=== PATIENT | male | born 1930 | race Caucasian/White ===

== ENCOUNTER 2016-12-30 10:24 | Inpatient (IN) | payer MEDICARE, BC ==
[~2016-12-30] VITALS: Ht 175.3 cm; Wt 83.2 kg
--- NOTE | ~2016-12-30 | ECH ---
Transthoracic Echocardiography Report (TTE) Demographics Patient Name ISMAEL PUGH Date of Study 12/30/2016 Patient Number [id number] Visit Number [id number] Date of 1930 Room Number 419 Accession Number [id number] Gender Male Age 86 year(s) Referring Brenda Bar Ivory Carver Zainab Mccormick [facility] Physician MD Frieda Mackay APRN Physician Kamilla Richards MD Histologist Physician Quintin Supervising Ordering Physician Louise Campo MD, MD/MLP Nurse Stress Cannery Tender Engineer Conclusions Contractility Score Summary Normal Left Ventricular contractility was noted. Summary Technically adequate exam. The estimated left ventricular ejection fraction is 60%. Mild left ventricular hypertrophy. Diastolic assessment reveals Grade I diastolic dysfunction. The left atrium is mildly dilated by LA volume index measurement. There is mild aortic regurgitation by color Doppler. Trivial pulmonic valve regurgitation by color Doppler. No other significant valvular abnormalities. The ascending aorta appears moderately dilated. The maximum diameter measures 4.2 cm. Recommendation The patient will be given the results of this study by the physician who ordered the exam. Procedure Type of Study TTE procedure Procedure Date Date: 12/30/2016 Start: 04:54 PM Technical Quality: Adequate visualization Indications:Bradycardia, Left bundle branch block, Hypertension and Bilateral lower extremity edema. Appropriate Use Criteria: 9 Height: 69 inches Weight: 187.17 pounds BSA: 2.01 m Rhythm: Sinus bradycardia HR: 35 bpm BP: 127/53 mmHg M-Mode/2D Measurements LV Diastolic Dimension: 4.3 cm LV Systolic Dimension: 3.44 cm LV Septum Diastolic: 1.29 cm LV PW Diastolic: 1.08 cm AO Root Dimension: 3.22 cm Cardiac Output: 3.36 l/min LA Dimension: 4.09 cm Cardiac Index: 1.67 l/min*m RV Diastolic Dimension: 3.75 cm LA volume index: 38 ml/m LVOT: 2.29 cm LVOT VTI: 23.33 cm RV Base: 4.3 cm LV Stroke volume: 96.04 ml RV Mid: 3.1 cm LV Stroke volume index: 47.78 ml/m RV Length: 6.6 cm TAPSE: 3.2 cm TDI-S': 17 cm/s Doppler Measurements AV Peak Velocity: 1.46 m/s MV Peak E-Wave: 0.54 m/s AV Peak Gradient: 8.53 mmHg MV Peak A-Wave: 0.94 m/s AV Mean Gradient: 4.65 mmHg MV E/A Ratio: 0.58 LVOT Peak Velocity: 1.03 m/s MV P1/2t: 57.1 msec AV Area (Continuity):3.23 cm MV Deceleration Time: 197 msec TR Velocity:2.66 m/s MV Area (PHT): 3.85 cm TR Gradient:28.3 mmHg PV Peak Velocity: 1.14 m/s Estimated RAP:5 mmHg PV Peak Gradient: 5.2 mmHg Estimated RVSP: 33 mmHg Estimated PASP: 33.3 mmHg RA Area: 12.3 cm Findings Left Ventricle The left ventricle is normal in size . Mild left ventricular hypertrophy. Diastolic assessment reveals Grade I diastolic dysfunction. Right Ventricle Normal right ventricle structure and function. Left Atrium The left atrium is mildly dilated by LA volume index measurement. Right Atrium Normal right atrial size. Mitral Valve Normal mitral valve structure and function. Mild mitral regurgitation by color Doppler. Aortic Valve The aortic valve is mildly sclerotic. There is mild aortic regurgitation by color Doppler. Tricuspid Valve Normal appearing tricuspid valve. Mild tricuspid regurgitation by color Doppler. Estimated pulmonary pressures within normal range. Pulmonic Valve Normal pulmonic valve structure and function. Trivial pulmonic valve regurgitation by color Doppler. Pericardial Effusion Epicardial fat pad noted. Miscellaneous The ascending aorta appears moderately dilated. The maximum diameter measures 4.2 cm. Pleural Effusion No evidence of pleural effusion. Contractility Score LV regional wall motion:(0-Non visualized 1-Normal 2-Hypokinesis 3-Akinesis 4-Dyskinesis 5-Aneurysm) Signature
--- NOTE | ~2016-12-30 | ECH ---
Transthoracic Echocardiography Report (TTE) Demographics Patient Name ISMAEL PUGH Date of Study 01/02/2017 Patient Number [id number] Visit Number [id number] Date of 1930 Room Number 303 Accession Number [id number] Gender Male Age 86 year(s) Referring Maurice ABREU Improvement Spec Zainab Mccormick [facility] Physician Quintin Mackay APRN Physician Interpreting Andressa Sam Music Journalist Physician MD Supervising Ordering Physician Maurice Ribeiro MD/[facility] Nurse Stress Auricular Acupuncturist Conclusions Summary Limited study for bubble study to rule out shunt. Technically adequate exam. The estimated left ventricular ejection fraction is 65%. Bubble study was done, there is no evidence for a PFO or ASD. Procedure Type of Study TTE procedure:Echo Limited SF. Procedure Date Date: 01/02/2017 Start: 10:27 AM Technical Quality: Adequate visualization Indications:Hypertension. Additional Indications:hypoxia , pacemaker Appropriate Use Criteria: 8 Contrast Medium: Bubble Study. Height: 69 inches Weight: 187.17 pounds BSA: 2.01 m Rhythm: Sinus tachycardia HR: 100 bpm BP: 136/76 mmHg Allergies - No known allergies. Findings Right Ventricle Device lead noted in the right ventricle. Left Atrium Bubble study was done, there is no evidence for a PFO or ASD. Right Atrium Device lead seen in the right atrium. Signature
--- NOTE | ~2016-12-30 | EEP ---
Initial Pacemaker Generator Implant Report Demographics Patient Name KEATON GUEVARA Gender Male Patient Number [id number] Race Visit Number [id number] Ethnicity Corporate ID Room Number 433 Accession Number [id number] Height 175.26 cm Date of 1930 Weight 84.9 kg Age 86 year(s) BSA 2.01 m Referring Physician Brenda Bar MD BMI 27.64 kg/m Implanting Physician Louise Campo MD Date of Study 12/31/2016 Assisting Physician Performing Physician Louise Campo MD The procedure was explained in detail to the patient. Risks, complications and alternative treatments were reviewed. Written consent was obtained. Medications reviewed with patient prior to procedure. Conclusions Implantable Device Summary Summary 1. Successful dual chamber pacemaker implant Recommendations 1. Chest X-Ray post-op and in the AM 2. Device check in the AM 3. Follow up with [facility] provider in 5-7 days Complications No complications. Procedure Procedure Type Pacemaker:Initial Insertion (generator and leads), Dual Lead PM Insert A&V Leads Indications Bradycardia, Bifascicular Block and Sick sinus syndrome. Procedure Description The patient was brought to the electrophysiology laboratory in a fasting state. A baseline ECG was recorded. Surface ECG leads, intracardiac electrograms, blood pressure measurements, and pulse oximety signals were monitored. A grounding pad was placed on the back. A defibrillator was configured to deliver shocks via self-adhesive anterior posterior defibrillator pads. Conscious sedation was administered. The upper chest area was prepped with ChloraPrep. After a three minute dry time the patient was draped in a sterile fashion. 2% Lidocaine with Bupivicaine was used in the infraclavicular area and an incision was made. Blunt dissection down to the area of the Pectoralis Fascia was performed. Subclavian access was obtained and guidewires were placed into the SVC. 2% Lidocaine with Bupivicaine was used inferiorly to the incision. Blunt dissection anterior to the Pectoralis Fascia was used to form the pacemaker pocket. Over one wire, an intravenous sheath and dilator were placed in the superior vena cava under fluoroscopic vision. Through the sheath, the ventricular lead was then placed into the right ventricular apex under fluoroscopic vision and tested. The sheath was removed. The lead was sutured to the Pectoralis fascia using non-absorbable suture. Over the other wire, an intravenous sheath and dilator were placed in to the superior vena cava under fluoroscopic vision. Through the sheath, the atrial lead was then placed in the right atrium under fluoroscopic vision and tested. The sheath was removed. The lead was sutured to the Pectoralis Fascia using non-absorbable sutures. The leads were then connected to the pulse generator and screwed tight. The pocket was irrigated with Normal Saline. The lead(s) and pulse generator were then placed into the pacemaker pocket. The incision was then closed. It was closed using 2-0 Vicryl for the deep and intermediate layer and 4-0 Vicryl for the subcuticular layer. A sterile dressing was applied. The patient tolerated the procedure well and was returned to the nursing unit in stable condition. Devices and Leads Devices + + +--------+ +------+ +---------+ !Identification!Action !Location!Device name!Serial!Implant !Comments ! ! ! ! ! !# !date ! ! + + +--------+ +------+ +---------+ !New implant !Implanted !Left !ALEPA ![id number]!12/31/2016! ! ! ! ! !SAAD ROBLES L111! ! ! ! + + +--------+ +------+ +---------+ Leads + + +--------+ +------+ +---------+ !Identification!Action !Location!Lead name !Serial!Implant !Comments ! ! ! ! ! !# !date ! ! + + +--------+ +------+ +---------+ !New implant !Implanted !RV !PACER LEAD ![id number]!12/31/2016! ! ! ! !septum !INGEVITY ! ! ! ! ! ! ! !MRI 59 CM ! ! ! ! + + +--------+ +------+ +---------+ !New implant !Implanted !RA !PACER LEAD ![id number]!12/31/2016! ! ! ! !lateral !INGEVITY ! ! ! ! ! ! ! !MRI 52 CM ! ! ! ! + + +--------+ +------+ +---------+ Leads Measured and Programmed Data +--------+---------+ +---------+ +---------+ + +----- --+ !Lead !Sensing Amplitude !Threshold (V) !Pulse Width (ms) !Impendence!Current! ! !(mV) ! ! !(Ohms) !(mA) ! +--------+---------+ +---------+ +---------+ + +----- --+ ! !Measured !Programmed !Measured !Programmed !Measured !Programmed ! ! ! +--------+---------+ +---------+ +---------+ + +----- --+ !RV ! !2.5 !0.5 !3.5 !0.5 !0.5 !1150 !0.5 ! !septum ! ! ! ! ! ! ! ! ! +--------+---------+ +---------+ +---------+ + +----- --+ !RA !1.5 !0.5 !0.7 !3.5 !0.5 !0.5 !592 !1.2 ! !lateral ! ! ! ! ! ! ! ! ! +--------+---------+ +---------+ +---------+ + +----- --+ Device Programming Bradycardia Zone +-------+--------+--------+--------+ + +------+--------+ !Pacing !Mode !Lower !Upper !Paced AV !Sensed AV !PVARP !VRP (ms)! !Mode !Switch !Rate !Rate !Interval !Interval !(ms) ! ! ! ! !(ppm) !(ppm) !(ms) !(ms) ! ! ! +-------+--------+--------+--------+ + +------+--------+ !DDDR !On !60 !130 !210 !180 !320 !250 ! +-------+--------+--------+--------+ + +------+--------+ Medical History Allergies - No known allergies:. Admission Data Admission Date: 12/30/2016 Admission Time: 12:40 Insurance Payors:Medicare. Hospital Status:Inpatient. Procedure Data Procedure Date:12/31/2016Start:13:30 Fluoroscopy Time: 4:18 minutes.Fluoroscopy Dose: 185 mGy. Estimated blood loss:10 ml. Contrast Material - Isovue 370,10 ml. Procedure Medications Order and Administration + + +---------+--------+ !Time !Medication !Dosage !Route ! + + +---------+--------+ !12/31/2016 13:17 !Ancef !2 g !I.V. ! + + +---------+--------+ !12/31/2016 13:23 !Versed !2 mg !I.V. ! + + +---------+--------+ !12/31/2016 13:23 !Fentanyl !50 mcg !I.V. ! + + +---------+--------+ !12/31/2016 13:23 !Sodium Chloride !10 ml !I.V. ! + + +---------+--------+ !12/31/2016 13:27 !Oxygen !4 l/min !NC ! + + +---------+--------+ !12/31/2016 13:32 !Versed !1 mg !I.V. ! + + +---------+--------+ !12/31/2016 13:32 !Fentanyl !25 mcg !I.V. ! + + +---------+--------+ !12/31/2016 13:35 !Versed !1 mg !I.V. ! + + +---------+--------+ !12/31/2016 13:35 !Fentanyl !25 mcg !I.V. ! + + +---------+--------+ Approach - Incision site: Left infraclavicular.The subclavian vein (stick) was cannulated.The incision was closed using 3-0 Vicryl for the deep and intermediate layers and 4-0 Vicryl for the subcuticular layer. A sterile dressing was applied. Entry Locations - Percutaneous access was performed through the left subclavian vein. A 6 Fr sheath was inserted. - Percutaneous access was performed through the left subclavian vein. A 6 Fr sheath was inserted. Discharge Data Discharge Date: 01/05/2017 Signatures
--- NOTE | 2016-12-31 08:17 | HP ---
ADMIT: 12/30/2016 RM/LOC: 419 [facility] MR#: [id number] ACC#: [id number] [address] [facility] [address] [place], [place] [address] ISMAEL PUGH [address] [place] [address] History and Physical SEX: M AGE: 86 : 1930 DATE OF SERVICE: CHIEF COMPLAINT: Shortness of breath, weakness, and low pulse rate. HISTORY OF PRESENT ILLNESS: This is an 86-year-old gentleman, usually gets his care through the [facility]. Lives [facility] at [facility]. Has a history of stroke in the past which he described as a mini-stroke which his symptoms resolved as well as hypertension. He reports he was talking to his sister who is a nurse and was telling her how he was feeling. He reported to her that his heart rate was 35, so recommended that he go in to be evaluated. So, he went over to be evaluated and they sent him directly to the hospital because of the low heart rate. He denies any chest pain but has been short of breath, has been feeling pretty weak, and overall not well. He thinks some of this started late November when he saw Frieda Ryder NP, at the [facility]. He was put on Lasix at that time because he had edema in his lower extremities. He says he has not felt very well since that time. He has been lightheaded and woozy as he describes it. PAST MEDICAL HISTORY: Osteoarthritis, hypertension, spinal stenosis, BPH, history of kidney stones, hyperlipidemia, hammertoes, stroke in 2002, history of bilateral total hip arthroplasty. He had a colonoscopy in 2008. SOCIAL HISTORY: Current nonsmoker. He has some family at his bedside. His lives in a senior living. FAMILY HISTORY: Reviewed but noncontributory. REVIEW OF SYSTEMS: Other complete review of systems obtained and negative except as above. PHYSICAL EXAMINATION: VITAL SIGNS: Temperature 98.1, pulse 43, respirations 16, blood pressure 127/53, ox saturation 96% on room air. GENERAL: This is a well-appearing 86-year-old gentleman. He is in no apparent distress. He is lying flat in bed without respiratory difficulty. HEENT: Pupils equal, round, and reactive to light and accommodation. Extraocular muscles intact. His throat is clear. NECK: Supple. Trachea midline. Thyroid not palpable. HEART: Bradycardic and distant. Pulses are regular and bradycardic in upper and radial pulses bilaterally. Right dorsalis pedis pulse is 1+. Left dorsalis pedis pulse is 1+. LUNGS: Diminished, but clear bilaterally. ABDOMEN: Soft, without any tenderness. Normal bowel sounds. EXTREMITIES: Lower extremities, has trace lower extremity edema to his bilateral lower extremities. He has generalized weakness. He can move all extremities equally bilaterally. He does have some Heberden and Asuncion nodes in his hands. NEUROLOGIC: Cranial nerves are intact. LABORATORY AND X-RAY DATA: White count 8.8, hemoglobin 12.7, platelets of ADMIT: 12/30/2016 RM/LOC: 419 [facility] MR#: [id number] [address] [address] ISMAEL PUGH [address] [place] [address] History and Physical SEX: M AGE: 86 : 1930 150. CMP shows a sodium of 141, potassium 4.0, chloride 106, bicarb 26, BUN 16, creatinine 0.9, NT-proBNP is 548, troponin less than 0.015. Liver tests are normal. Chest x-ray shows some cardiomegaly. No decompensation. Tortuous aorta. Echocardiogram shows EF is 60%. Mild LVH. Mild dilated left atrium. He has moderately dilated ascending aorta, maximum diameter is 4.2 cm. EKG with bradycardia but sinus. ASSESSMENT: 1. Bradycardia. 2. Sick sinus syndrome. 3. History of hypertension. 4. Shortness of breath. 5. Acute diastolic congestive heart failure. PLAN: The patient will be admitted to the hospital under PCU with tele and have Cardiology see him. I believe he may be needing a pacemaker. He is currently on a beta-kory as well as an alpha kory. We will stop these for now and see how his heart rate responds. Also, watch his blood pressure closely. Cardiology has already evaluated him by now and they are planning a pacemaker in the morning. Robbie Gutierrez MD/ michael JOB #: [id number] CC: Robbie Gutierrez, Attending Physician Robbie Gutierrez, Family Physician
--- NOTE | 2017-01-03 06:48 | CO ---
ADMIT: 12/30/2016 RM/LOC: 303 [facility] MR#: [id number] [address] [facility] [address] [place] [id number] ISMAEL PUGH [address] [place] [address] Consultation SEX: M AGE: 86 : 1930 DATE OF CONSULTATION: 01/02/2017 ATTENDING PHYSICIAN: Robbie Gutierrez CONSULTING PHYSICIAN: Denver Cardoza MD CHIEF COMPLAINT: Right shoulder pain. HISTORY: Mr. Pugh is an 86-year-old male, here had pacemaker placed and required oxygen that has been put down here in ICU for the last day or two. He has been complaining of increasing right shoulder pain and was sent here for evaluation of that. He has known right shoulder osteoarthritis that he had gotten injection in the right shoulder at the [facility] on 13 of November and then just kind of over the last couple days increasing pain and swelling. REVIEW OF SYMPTOMS: Otherwise negative. PAST MEDICAL AND SURGICAL HISTORY: As above and otherwise noncontributory. OBJECTIVE: GENERAL: He is awake, alert and oriented, in no acute distress. EXTREMITIES: The right shoulder, he has pain with attempted forward flexion of the right shoulder. He does have some mild pain with passive range of motion of the shoulder, which is fairly limited. No tenderness over the anterior joint capsule itself, but there is swelling and pain in sort of the anterolateral bursa, otherwise neurovascularly intact. DIAGNOSTIC DATA: CT scans reviewed and he does have just [id number] glenohumeral joint arthritis with osteophyte formation. ASSESSMENT AND PLAN: An 86-year-old with right shoulder osteoarthritis and looks like he has also a subacromial bursitis. Unfortunately, he had an injection less than 3 months ago. It is my plan for now would be continued therapy, ice, and try to maximize these modalities to ease his pain as much as possible and then I will reassess and continue to follow him if he is not getting any improvement. We will consider an injection, although I would prefer not to do any injection within 3 months as doing these too frequently can cause some attritional wear on the rotator cuff. I discussed this plan with the patient. He agrees with that, and I will reassess again tomorrow morning. Denver Cardoza MD/ michael JOB #: [id number] CC: Robbie Gutierrez, Attending Physician Robbie Gutierrez, Family Physician
--- NOTE | 2017-01-05 10:29 | CO ---
ADMIT: 12/30/2016 RM/LOC: 303 [facility] MR#: [id number] ACC#: [id number] [address] [address] ISMAEL PUGH [address] [place] [address] Consultation SEX: M AGE: 86 : 1930 DATE OF CONSULTATION: 01/01/2017 ATTENDING PHYSICIAN: Robbie Gutierrez CONSULTING PHYSICIAN: Guevara Garcia MD HISTORY OF PRESENT ILLNESS: He is admitted by Dr. Gutierrez, and he is seen by [facility], had a pacemaker put in yesterday. He was admitted to the hospital on 12/30. The reason for the admission has been a symptomatic bradycardia with a heart rate in the 30s and 40s. This gentleman is 86, very pleasant, very active at home by himself. He has given up smoking in 1994. He had hip replacement surgery done at that time. No particular cardiac history excepting for hypertension for which he has been on treatment. He had prostatic hypertrophy. He is not a diabetic. He did lose some weight when his was sick with aneurysm that was in 2008. He has gained his weight back. His smoking history was heavy at 2 packs per day for 40 years, which he has given up in 1994. He has mild lipidemia and does not have any other history of heart problem. He has hypertension, hyperlipidemia, osteoarthritis, and BPH. There is a history of kidney stone, chronic constipation, spinal stenosis, which was operated on, gastroesophageal reflux disease, and questionable stroke with speech problem after his hip surgery in 1994. He does take small aspirin 81 mg a day. His previous surgeries have been bilateral total hip, one in 1994 and one in 2006 and back surgery for spinal stenosis. ALLERGIES: NO HISTORY OF ANY ALLERGIES. HOME MEDICATIONS: Comprised of: 1. Allopurinol. 2. Atenolol 25 mg a day. 3. Aspirin 81 mg a day. 4. Vitamin D. 5. Doxazosin 2 mg a day. 6. Finasteride daily. 7. Ibuprofen daily. 8. Multiple vitamins daily. 9. Omeprazole daily. 10.Vitamin B on a regular basis. He was on oxygen after the pacemaker put on. The oxygen need, however, has gone up very markedly this morning and already afternoon, and his blood gasses were drawn on 15 liters of oxygen. He has been brought down to the intensive care unit from room 419 to 303, and he has been placed on the BiPAP when I walked in. PHYSICAL EXAMINATION: GENERAL: On my looking at him, he was fully alert, fully appropriate, and very pleasant elderly gentleman, who looked younger than his stated age. He gave good history then his daughter came in, who provided more history without bothering him to talk with the BiPAP on. ADMIT: 12/30/2016 RM/LOC: 303 [facility] MR#: [id number] [address] [address] [place] [address] Consultation SEX: M AGE: 86 : 1930 EXTREMITIES: He has no edema now, no calf tenderness. ABDOMEN: Soft and nontender. HEART: No heart murmur. LUNGS: Symmetrical breath sounds. NECK: No neck vein distention or clubbing. DIAGNOSTIC DATA: I reviewed his chest x-ray and the CT scan. Chest x-ray does show kind of a left ventricular pattern. There is pacemaker. No active pulmonary infiltrate or effusion detected. His pH was 7.514, PCO2 of 29.4, PO2 of 54.1, and bicarb 23.1. Sodium was 137, potassium 3.5, chloride 103, and creatinine 0.9. White count was 10.3, hemoglobin 13.3, and platelet 169. Reviewed CT scan. CLINICAL IMPRESSION: 1. Acute respiratory distress. The main question is what triggered it, could there be an infection. We will check blood. We will check urine for an infection. I think empirically it may be worthwhile to put him on antibiotic broader coverage. 2. Status post pacemaker implantation yesterday. 3. Chronic obstructive pulmonary disease, although no definite diagnosis, but his chest x-ray findings, and his long history of tobacco 15 years ago would be suggestive of the diagnosis. 4. Other diagnoses are degenerative joint disease, benign prostatic hypertrophy, etc. RECOMMENDATIONS: Regarding recommendation, I do not think that he is volume overloaded by any means. I will give him a small amount of fluid infusion. I would like to give him some pain medications intravenously to help him relax, and we will give him GI bleeding prophylaxis, and we will give him fentanyl 25 mcg q.4 hours also for his anxiety and repeat the blood gas at 4 and see how that looks. Overall prognosis seems reasonably good. We will see how he does. I would like to thank Dr. Gutierrez for this referral. Guevara Garcia MD/ michael JOB #: [id number] CC: Robbie Gutierrez, Attending Physician Robbie Gutierrez, Family Physician MD Quintin Pickering MD
[2017-01-06] MEDS ORDERED: LASIX DPS20 MG PO (11:45)
[2017-01-06] MEDS ORDERED: ASPIRIN EC81 MG PO (11:45)
[2017-01-06] MEDS ORDERED: KLOR-CON M2020 ME1 PO (11:45)
[2017-01-06] MEDS ORDERED: PROSCAR DPS5 MG PO (11:46)
[2017-01-06] MEDS ORDERED: LIPITOR DPS20 MG PO (11:46)
[2017-01-06] MEDS ORDERED: TENORMIN DPS50 MG PO (11:46)
[2017-01-06] MEDS ORDERED: ZYLOPRIM-DPS300 MG PO (11:46)
[2017-01-06] MEDS ORDERED: SENOKOT S1 TAB PO (11:46)
[2017-01-06] MEDS ORDERED: ULTRAM DPS50 MG PO (11:47)
[2017-01-06] MEDS ORDERED: LEVAQUIN DPS750 MG PO (11:47)
[2017-01-06] MEDS ORDERED: PEPCID DPS20 MG PO (11:48)
--- NOTE | 2017-01-09 10:36 | CO ---
ADMIT: 12/30/2016 RM/LOC: 419 [facility] MR#: [id number] [address] [id number] [address] [place] [address] Consultation SEX: M AGE: 86 : 1930 DATE OF CONSULTATION: 12/30/2016 ATTENDING PHYSICIAN: Robbie Gutierrez CONSULTING PHYSICIAN: Shiloh Gil MD REASON FOR CONSULTATION: Bradycardia. HISTORY OF PRESENT ILLNESS: Fredy is a very pleasant 86-year-old male, who over the past few weeks has noticed that his pulse has been in the 30s at home. He checks his blood pressure and pulse a few times a week at home. He has felt okay, but his family made him come in to see the doctor. He saw his primary care physician and they referred him directly to the ER. He was bradycardic in the ER with pulse in the 30s and was admitted for further evaluation and management. He states that he does have a 6-week history of lower extremity edema and increasing shortness of breath. At that time, he saw his primary care physician at the [place], and she initiated Lasix. He questions if the Lasix has caused these symptoms. He denies having any chest pain, palpitations, syncope, or presyncope. At times, he does say he feels kind of unsteady on his feet. CARDIAC HISTORY AND RISK FACTORS: Fredy has no significant cardiac history aside from hypertension. He is not a diabetic. He did smoke heavily about 2 packs per day for 40 years, but quit in 1994. He does have hyperlipidemia. He does not know of any family members having heart problems. PAST MEDICAL HISTORY: Hypertension, hyperlipidemia, osteoarthritis, BPH, history of kidney stones, constipation, spinal stenosis, gastroesophageal reflux, and questionable stroke with speech problems after hip replacement surgery. Per the patient no definitive stroke diagnosis was made, and he was treated with 81 mg aspirin only. PAST SURGICAL HISTORY: Bilateral total hip replacement, one in 1994 and one in 2006. Back surgery for spinal stenosis. ALLERGIES: NO KNOWN DRUG ALLERGIES. MEDICATIONS: Home medications include: 1. Allopurinol. 2. Atenolol 25 mg daily. 3. Aspirin 81 mg daily. 4. Vitamin D. 5. Doxazosin 2 mg daily. 6. Finasteride. 7. Ibuprofen as needed. 8. Multivitamin. 9. Omeprazole. 10.Vitamin B. ADMIT: 12/30/2016 RM/LOC: 419 [facility] MR#: [id number] [address] [address] [address] [place] [id number] Consultation SEX: M AGE: 86 : 1930 11.Atorvastatin. 12.Furosemide 20 mg. 13.Potassium chloride. 14.Tramadol as needed. FAMILY HISTORY: Fredy does not know of any family history of heart disease. He states that his father had cancer, and his mother possibly had a stroke in her 90s. SOCIAL HISTORY: Fredy does admit to 1 to 2 cups of caffeinated beverages per day. He will only occasionally drink alcohol. He denies any use of nonprescription drugs. 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 His is currently in a mcc. REVIEW OF SYSTEMS: GENERAL: Positive for fatigue. Negative for fever, chills, sweats, rash, or weight loss. EYES: Positive for blurred vision. Denies double vision, cataracts, or glaucoma. THROAT, MOUTH, AND EARS: Positive for tinnitus. ENT: Denies hearing loss or problems with nose, mouth or throat. PULMONARY: Denies cough, sputum production, asthma, emphysema or bronchitis. Denies snoring loudly, wakefulness at night, or fatigue upon awakening. GASTROINTESTINAL: Denies heartburn or difficulty swallowing. No change in bowel habits. Denies dark or bloody stools. No history of ulcers, hiatal hernia, or gallbladder or liver disease. GENITOURINARY: Positive for urinary frequency and history of kidney stones. Denies dysuria, hematuria, nocturia, or urinary tract infection. Denies history of renal insufficiency or failure. MUSCULOSKELETAL: Positive for arthritis. Denies history of gout. Denies muscle or joint pains. ENDOCRINE: Denies history of thyroid dysfunction or diabetes. HEMATOLOGIC: Denies history of anemia, easy bruising, or cancer. NEUROLOGIC: Denies chronic headaches, dizziness, syncope, stroke, seizures or numbness or tingling. PSYCHIATRIC: Denies history of mental illness or feelings of depression. PHYSICAL EXAMINATION: VITAL SIGNS: Blood pressure 145/67, pulse 40, respirations 16, temperature 98.1. GENERAL: He is awake, in no acute distress. SKIN: [place], warm and dry. EYES: Sclerae clear. No xanthelasmas. ENT: Positive JVD. Oral mucosa is pink and moist. No carotid bruits. CHEST: Respirations are even and unlabored. Lungs are clear to auscultation. HEART: Regular rhythm, bradycardic. Normal S1, S2. No murmurs, rubs or gallops. ABDOMEN: Soft and nontender. MUSCULOSKELETAL: Gait is normal. EXTREMITIES: Peripheral pulses palpable. No clubbing, cyanosis or edema. ADMIT: 12/30/2016 RM/LOC: 419 [facility] MR#: [id number] [address] [place] [id number] [address] [place] [address] Consultation SEX: M AGE: 86 : 1930 PSYCHIATRIC: Alert and oriented. Mood and affect are appropriate. DIAGNOSTIC STUDIES: Hemoglobin 12.7, WBC 8.8, platelets 150, creatinine 0.9, troponin less that 0.015, BNP 548. Chest x-ray revealed mild cardiomegaly. No overt pulmonary edema. EKG shows a bifascicular block with sinus bradycardia. ASSESSMENT: 1. Bifascicular block with sinus tachycardia. 2. Sick sinus syndrome. 3. Hypertension. PLAN: We will plan to hold his atenolol due to his decreased heart rate and conduction abnormalities. He more than likely will need a dual chamber pacemaker. The risks, benefits, and alternative therapies were discussed with the patient and his daughter. All questions were answered to their satisfaction, and they agreed to proceed. We will get an echocardiogram as well as check a TSH level. Unless the bradycardia significantly changes upon holding the atenolol, we will plan to proceed with pacemaker placement tomorrow afternoon. It is very unlikely that his atenolol is the cause of the bradycardia since he has been on it at this dose for 15 years. There is record of an EKG from a few years ago with a normal heart rate at that time. We will continue to follow closely and plan for pacemaker placement tomorrow. ROBERT Esteves Student / Shiloh Gil MD / michael JOB #: [id number] CC: Robbie Gutierrez, Attending Physician Robbie Gutierrez, Family Physician
--- NOTE | 2017-01-09 19:40 | ER ---
ADMIT: 12/30/2016 RM/LOC: 419 [facility] MR#: [id number] [address] [address] [address] [place] [address] Emergency Room Report SEX: M AGE: 86 : 1930 DATE: 12/30/2016 HISTORY OF PRESENT ILLNESS: The patient is an 86-year-old male, presents to emergency room from [facility] with shortness of breath with activity. Apparently, he was at his appointment at [facility], doctor took a look at his heart rate and immediately shipped him over to us for evaluation. He came via ambulance. Family at bedside now. He says that ever since he was put on Lasix in November 13 he has not been feeling well. He also complains of blurred vision. He has had in the past a mini stroke. He has a history of hypertension. His surgeries include bilateral total hip arthroplasty and back surgery. MEDICATIONS: Include: 1. Allopurinol. 2. Atenolol. 3. Doxazosin. 4. Finasteride. 5. Multivitamins. 6. Omeprazole. 7. Vitamin D. 8. Atorvastatin. 9. Tramadol for pain. ALLERGIES: NO ALLERGIES. PHYSICAL EXAMINATION: VITAL SIGNS: Blood pressure is 139/53, heart rate of 42 and variable, respirations 19, temp is 98.6, and O2 sats 93% on room air. GENERAL: He is alert. Family at bedside. HEENT: Normal inspection. NECK: Supple. No carotid bruit. No lymphadenopathy. RESPIRATION: He has decreased air movement bilaterally. CVS: Bradycardia. ABDOMEN: Nontender. SKIN: Good color and turgor. EXTREMITIES: Pedal edema, mild bilaterally. NEUROLOGIC: Oriented x4. Mood and affect appropriate. LABORATORY DATA: Cardiac enzymes are negative. His CBC normal with a hemoglobin of 12.7, and I believe a month and a half ago he was 14, hematocrit is 37.4. Glucose 118. Chest x-ray, no overt pulmonary edema, mild ADMIT: 12/30/2016 RM/LOC: 419 [facility] MR#: [id number] [address] [address] [address] [place] [address] Emergency Room Report SEX: M AGE: 86 : 1930 cardiomegaly. EKG shows a heart rate of 35 with sinus cecily. CLINICAL IMPRESSION: 1. Mild cardiomegaly. 2. Congestive heart failure, newly diagnosed. 3. Shortness of breath with exertion. 4. Low heart rate. The patient will be admitted to PCU through Dr. Gutierrez, city call, with Cardiology consultation-Dr. Johnson. Family notified. The patient aware of admission. At this point, we have a lock on him and have not started any medications. He denies any chest pain. ROBERT Jackson / Denver Hazel MD / michael JOB #: [id number] CC: Robbie Gutierrez MD, Attending Physician Robbie Gutierrez MD, Family Physician
--- NOTE | 2017-01-20 12:58 | DS ---
ADMIT: 12/30/2016 RM/LOC: 433 [facility] MR#: [id number] [address] [address] [address] [place] [address] General Discharge Summary SEX: M AGE: 86 : 1930 ADMISSION DATE: 12/30/2016 DISCHARGE DATE: 01/05/2017 FINAL DIAGNOSES: 1. Sick sinus syndrome with bradycardia, status post pacemaker. 2. Shoulder pain secondary to osteoarthritis. 3. Hypoxic respiratory failure. 4. Underlying chronic obstructive pulmonary disease. REASON FOR ADMISSION: See dictated H and P, but briefly, this is an 86-year- old gentleman who presented not feeling well. He was found to have severe bradycardia and was set up for pacemaker placement. He also had acute diastolic congestive heart failure. He was admitted and monitored in the intensive care unit, set up for pacer placement on 12/31/2016, which was done without incident. However, supervisor education of the , the patient had some increased shortness of breath and hypoxia, had increased oxygen needs. Stat CTA of his chest was normal. He was put on EzPAP and DuoNebs and given Lasix and high amounts of oxygen. Ultimately, he did improve some. He continued with therapy and ultimately needed some BiPAP. He was transferred to the intensive care unit, then monitored with Pulmonary Critical Care as well. He was given Levaquin and vancomycin. We thought maybe he had a pneumonia through all this. Echocardiogram was pretty much unremarkable. He had some severe shoulder pain. X-ray of the shoulder revealed some osteoarthritis. Ortho consult obtained. The patient did have a moment of some arrhythmia. Ortho's recommendations were to do an injection in his shoulder in the future if he did not really respond to conservative measures. The patient had some constipation over the weekend of the . Blood pressure started to go up, so medications were adjusted. By , the patient was transferred to normal PCU and was doing much better. By the day of discharge, he was doing okay and his fpc Tabatha Sarah could take him that day, so therefore this was done. He did have a little bit of fever on the and had cultures and everything done, which all came back normal. Ultimately, he was set up to be discharged to [facility]. DISCHARGE MEDICATIONS: Include: 1. Aspirin 81 mg daily. 2. Potassium 20 mEq daily. 3. Lasix 20 mg daily. ADMIT: 12/30/2016 RM/LOC: 433 [facility] MR#: [id number] [address] [address] [address] [place] [address] General Discharge Summary SEX: M AGE: 86 : 1930 4. Lipitor 20 mg daily. 5. Proscar 5 mg daily. 6. Senokot-S one tablet daily. 7. Atenolol 50 mg daily. 8. Allopurinol 300 mg daily. 9. Tramadol 50 mg q.i.d. p.r.n. 10.Levaquin 750 mg daily for three days. 11.Pepcid 20 mg daily p.r.n. DISCHARGE INSTRUCTIONS: He will have PT and OT, a low-salt diet, 3 L of oxygen at rest, 4 L with activity. Followup with Dr. Gil on 01/08/2017, as well as his primary doctor as needed. Robbie Gutierrez MD/ michael JOB #: [id number] CC: Robbie Gutierrez MD, Attending Physician Robbie Gutierrez MD, Family Physician
== END 2017-01-05 13:39 | DRG 242 ==
LOC: ER 10:24 → 3ICU 12:40 → 4PCU 12:40 → 3ICU 01-01 13:46 → 4PCU 01-03 13:25
PROVIDERS: ADMIT Internal Medicine
PROC: 02H63JZ Insertion of Pacemaker Lead into Right Atrium, Percutaneous Approach (ICD-10-PCS; principal; 2016-12-30)
PROC: 02HK3JZ Insertion of Pacemaker Lead into Right Ventricle, Percutaneous Approach (ICD-10-PCS; principal; 2016-12-30)
PROC: 0JH606Z Insertion of Pacemaker, Dual Chamber into Chest Subcutaneous Tissue and Fascia, Open Approach (ICD-10-PCS; principal; 2016-12-30)
DX: I49.5 Sick sinus syndrome (principal); I50.31 Acute diastolic (congestive) heart failure; J96.01 Acute respiratory failure with hypoxia; I11.0 Hypertensive heart disease with heart failure; M48.00 Spinal stenosis, site unspecified; M19.011 Primary osteoarthritis, right shoulder; M75.51 Bursitis of right shoulder; J44.9 Chronic obstructive pulmonary disease, unspecified; N40.0 Benign prostatic hyperplasia without lower urinary tract symptoms; K21.9 Gastro-esophageal reflux disease without esophagitis; K59.00 Constipation, unspecified; E78.5 Hyperlipidemia, unspecified; Z86.73 Personal history of transient ischemic attack (TIA), and cerebral infarction without residual deficits; Z96.643 Presence of artificial hip joint, bilateral; Z87.442 Personal history of urinary calculi; Z87.891 Personal history of nicotine dependence; Z79.82 Long term (current) use of aspirin